=== PATIENT | female | born 1995 | race Caucasian/White ===

== ENCOUNTER 2017-01-28 06:20 | Day surgery (SDC) | payer OTHER ==
--- NOTE | 2017-01-19 03:40 | HP ---
PREOPERATIVE HISTORY AND PHYSICAL: DATE OF ADMISSION: 01/28/17 PROVIDER: Leobardo Guillory MD * (DICTATED BY ANN HOLDEN) CHIEF COMPLAINT: Left hip pain. HISTORY OF PRESENT ILLNESS: Gabriela is a 21-year-old female who has been followed by Dr. Guillory for ongoing pain in her left hip. She did undergo an injection intra- articularly which gave her immediate relief of her pain and it lasted almost 2 weeks. Prior to that, she had been having pain and catching in the hip. She has never had any injury, she denies any numbness, tingling, fevers or chills. She is interested in surgical intervention for correction of the problem at this point. PAST MEDICAL HISTORY: Anemia. PAST SURGICAL HISTORY: The patient had a cyst removal on her left shoulder. She reports no complications with the anesthesia. CURRENT MEDICATIONS: Iron 325 mg p.o. q. day. ALLERGIES: ZYRTEC. SOCIAL HISTORY: The patient is a student at [employer]. She denies tobacco use, she denies alcoholic beverages. She exercises regularly. She does live alone. REVIEW OF SYSTEMS: Constitutional: Negative for recent hospitalization, fevers , chills, night sweats or unexplained weight loss. HEENT: Negative for headaches, lightheadedness, or balance problems. Negative for changes to her hearing or vision. Negative for sore throat, runny nose or frequent nose bleeds. Cardiovascular: Negative for chest or arm pain with exertion, history of heart palpitations, heart murmur or high blood pressure. Negative for embolism or deep vein thrombosis. Respiratory: Negative for chronic cough, shortness of breath with exertion, asthma or COPD. Gastrointestinal: Negative for heartburn, nausea, vomiting, diarrhea, constipation or GERD. Genitourinary : Negative for night time urination, frequency of urination, urinary tract infections or kidney problems. Musculoskeletal: Negative for chronic back pain. No recent fractures. Positive for ongoing left hip pain. Skin: Negative for rashes, lesions, lumps or sores. Neurologic: Negative for seizure , stroke, epilepsy, depression, or anxiety. Endocrine: Negative for diabetes or thyroid problems. Hematology: Negative for easy bleeding, bruising or anemia. PHYSICAL EXAMINATION GENERAL: She is a well-developed, well-nourished, pleasant female in no acute distress at rest. She is alert and oriented x3 with appropriate mood and affect. Gait, she ambulates with a normal gait. There is good balance and coordination. VITAL SIGNS: The patient is 5 feet 4 inches, 125 pounds, blood pressure 113/65 , pulse 64, respirations 15, temperature 97.6. HEENT: Normocephalic, atraumatic. Hearing and vision are grossly intact. NECK: Trachea is midline. CARDIOVASCULAR: Regular rate and rhythm. No murmurs, rubs or gallops. Normal S1, S2. RESPIRATORY: Lungs clear to auscultation bilaterally. No wheezes, rales or rhonchi. ABDOMEN: Soft, nondistended, nontender. Normal bowel sounds. EXTREMITIES/MUSCULOSKELETAL: Examination of the hip demonstrates mild discomfort with deep flexion. He skin is intact without abrasions or open wounds. She has a mildly positive FADIR test. She has a negative TALA test. She has no pain on passive stretch. She is tender slightly about the lateral joint. She is sensate to light touch distally. She has a 2+ dorsalis pedis pulse. IMAGING: MRI was reviewed and demonstrates no fracture or dislocation. 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 IMPRESSION: Left hip labral tear and impingement. PLAN: The patient is to undergo left hip arthroscopic osteoplasty and labral repair by Dr. Guillory on 01/28/17. The risks, benefits and postoperative course were discussed with the patient at length and she would like to proceed. Several prescriptions were sent to her pharmacy for postoperative pain including Naproxen 500 mg, to take twice daily for 30 days, Percocet 5/325, oxycodone extended release 10 mg twice daily for 5 days, Ambien 5 mg every night for 5 days as well. All of the patient's questions were answered to her full satisfaction. We will follow up with the patient postoperatively. ANN HOLDEN [id number]/[facility] #: [id number] MTDSlade
[~2017-01-28 06:20] MED LIST: Buffered Lidocaine 0.9% SYRIN* 5 ML/SYR SYRINGE INTRADERM ONE; Dexamethasone IV* 4 MG/ML 1 ML (4 MG) IV SLOW PU ONE; Famotidine IV* 10 MG/ML 2 ML (20 mg) IV ONE; Scopolamine 1.5 mg* PATCH TRANSDERM ONE
[2017-01-28] MEDS ORDERED: Famotidine IV* 10 MG/ML 2 ML (20 mg) ONE (06:25)
[2017-01-28] MEDS ORDERED: Scopolamine 1.5 mg* PATCH ONE (06:25)
[2017-01-28] MEDS ORDERED: Buffered Lidocaine 0.9% SYRIN* 5 ML/SYR SYRINGE ONE (06:25)
[2017-01-28] MEDS ORDERED: Dexamethasone IV* 4 MG/ML 1 ML (4 MG) ONE ×2 (06:25→06:26)
[2017-01-28] MEDS ORDERED: ceFAZolin 2 GM PREMIX (*) 50 ML IVPB ONE (07:00)
[2017-01-28] MEDS ORDERED: ceFAZolin 2 GM PREMIX (*) 100 ML IVPB ONE (07:00)
[2017-01-28] MEDS ORDERED: Lidocaine 2% PF * 5 ML VIAL ONE (07:07)
[2017-01-28] MEDS ORDERED: Propofol* 10 MG/ML 20 ML BTL IV PUSH ONE (07:07)
[2017-01-28] MEDS ORDERED: Cisatracurium* 2 MG/ML MDV 5 ML ONE (07:07)
[2017-01-28] MEDS ORDERED: Midazolam* 1 MG/ML 5 ML VIAL (5 MG) ONE (07:15)
[2017-01-28] MEDS ORDERED: Bupivacaine 0.25% SDV* 30 ML ONE (07:15)
[2017-01-28] MEDS ORDERED: fentaNYL* 50 MCG/ML 2 ML VIAL (100 MCG VIAL) ONE ×2 (07:15→11:28)
[2017-01-28] MEDS ORDERED: EPHEDrine (Pressors)* 50 MG/ML VIAL ONE (08:13)
[2017-01-28] MEDS ORDERED: fentaNYL* 50 MCG/ML 2 ML VIAL (100 MCG VIAL) IV PRN (08:38)
[2017-01-28] MEDS ORDERED: PROCHLORPERAZINE INJ 5 MG/ML 2 ML VIAL IV PRN (08:38)
[2017-01-28] MEDS ORDERED: Morphine INJ* 2 MG/ML 1 ML SYRINGE IV PRN (08:38)
[2017-01-28] MEDS ORDERED: Ketorolac INJ* 30 MG/ML 1 ML VIAL ONE (08:48)
[2017-01-28] MEDS ORDERED: Ondansetron INJ* 2 MG/ML VIAL ONE (10:02)
--- NOTE | 2017-01-28 11:05 | RAD ---
CPT II Codes: 6045F INDICATION: Left hip arthroscopy. Fluoroscopic services provided for referring physician. 243.3 seconds of fluoroscopy time was used. 3 spot images demonstrates arthroscope in the left hip joint. IMPRESSION: Arthroscopic services provided for referring physician.
[2017-01-28] MEDS ORDERED: oxyCODONE/Acetamin 5/325 MG* TAB ONE (11:22)
[2017-01-28] MEDS: oxyCODONE/Acetamin 5/325 MG* TAB PO PRN ×2 (11:24→11:25)
[2017-01-28] MEDS ORDERED: PROCHLORPERAZINE INJ 5 MG/ML 2 ML VIAL ONE (11:28)
[2017-01-28 12:51] VITALS: BP 109/62
[2017-01-31] MEDS ORDERED: Scopolomine PATCH Remove* 1 NOTE MISC PATCH OFF ONE (06:00)
--- NOTE | 2017-02-21 13:26 | OP ---
CC: Dr. Leroy* DATE OF OPERATION: 01/28/17 - LOCATED WITHIN [facility] DATE OF : 89 SURGEON: Leobardo Guillory MD. INTEGRATION AIDE: ANN Solitario. ANESTHESIOLOGIST: Dr. Harrison. 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 OPERATIVE PROCEDURE: Left hip arthroplasty with labral debridement and acetabular osteoplasty as well as femoral osteoplasty. COMPLICATIONS: None. ESTIMATED BLOOD LOSS: Minimal. TRACTION TIME: About 1 hour 40 minutes. IMPLANTS USED: None. 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 She had MRI confirming femoroacetabular impingement. She responded well to an injection. After failing physical therapy, she has elected to proceed with surgery. Risks and benefits were discussed at length and included but are not limited to bleeding, infection, damage to nerves, vessels, surrounding structures, wound nonhealing, persistent pain, need for further surgery, scarring, stiffness, incomplete relief of symptoms, fracture, heterotopic ossification, risk of anesthesia as well as traction injury. She has elected to proceed. OPERATIVE FINDINGS: Traction provided good access to the hip joint without evidence of hyperlaxity. The arthroscopic exam showed a large labral tear from 10 to 2 o'clock position with subluxation into the labrum that was poor quality. There was also mild labral fraying more superiorly. The unstable labral tear was not able to be repaired and the labrum was degenerative somewhat. There was wave sign involving cartilage delamination at the division of labral tear with a minimal amount of damage to the acetabular cartilage. Otherwise cartilage of the femoral head was intact as well as the acetabulum and there was evidence of capsular irritation. DESCRIPTION OF PROCEDURE: The patient was greeted in the preoperative area by the attending surgeon. Correct extremity was marked and the consent was confirmed. The patient was then brought back to the operating suite where she was placed in supine position on the operating table. She then underwent general anesthesia with endotracheal intubation, after which thigh high HARLAN stockings were placed on her nonoperative leg. She was placed in the [employer] traction device hip distraction system with a well padded perineal post. She was placed in well-padded boots. Gross traction was then applied at the dome of the pelvis the lower extremity was then placed in a dynamic leg pichardo with neutral adduction, slight flexion, gentle internal rotation to bring the femoral neck parallel to the floor to facilitate atraumatic access. The left arm was then draped over the chest. Lead was placed around the patient to prevent exposure to radiation. The C-arm was then used to confirm alignment. A surgical pause was then done indicating side, site, procedure, then gross traction was applied to the operative extremity. Under sterile condition, an 18 -gauge spinal needle was used to introduce the joint to break the acetabular seal. Once this was done, fine traction was applied until the joint was distracted to about 1.5 cm. This was visualized and confirmed using a large C- arm fluoroscopy. Traction was then released. The hip was then prepped and draped in the usual sterile fashion beginning with chlorhexidine soap, scrub, and alcohol wipe and a final prep with ChloraPrep. After appropriate surgical pause indicating side, site, procedure, administration of antibiotics, traction was brought back up to allow for about 1.5 cm of distraction. The anterior peritrochanteric portal was then accessed using the long spinal needle, which was confirmed fluoroscopically. After this was done the nitinol wire was then used to help facilitate the cannula and the arthroscope into the joint atraumatically. Once this portal was made, the mid anterior portal was made in a similar fashion using spinal needle for localization. The trocar was advanced to the joint. A 70-degree scope was then used to identify and visualize the hip including femoral head, which had no significant arthritic changes. There was a waist at the acetabular ridge. The labrum was displaced and flapped into the joint and was fully detached in some portions. It appeared to be very degraded and in poor condition. The arthroscope was then switched in between portals to make sure no portal was penetrating the labrum. The irrigation pump was set to 40 mmHg and provided a constant pressure throughout the entirety of the case. Once the positions were confirmed, capsulotomy was then done at the hip capsule using the [place] blade. First, the compartment synovectomy was carried out using a full radius curved shaver as well as electrocautery device to maintain hemostasis. This eliminated the synovial fold that was visible to allow access to the joint capsule. The capsular reflection was then cleared back from the rim and acetabulum exposed to allow for rim trimming. At this point, it was determined that the labrum was not repairable, so biters and antonia were used to debride this back to try to protect and keep as much [place] labrum in place. At this point, rim trimming was began using a 5-mm round ju beginning superolaterally and then extending anteriorly. This was confirmed with a C-arm to help remove crossover sign as well as AIIS bony impingement all the way to the sub-spine region. This was determined by preoperative templating. All loose fluid and debris was removed. Attention was directed to the remainder of the labrum to make sure that there was no unstable flaps. Again repair was considered but was not able to be done due to the quality of the labrum. Once this was trimmed back to a stable layer, the traction was released of the operative leg. The traction was reduced and this was confirmed by C-arm as well as arthroscopically that the head was reduced into the joint and a concentric reduction was confirmed. Femoral head and neck were then partially visualized and it exposed a very mild cam lesion. Preoperative templating was then used as a guide and femoral neck osteoplasty was carried out using a 5.5 round ju. The resection was carried out from superior-lateral, inferior-medial, and was carefully monitored and confirmed using the C-arm to make sure elimination of any femoral-sided impingement. Femoral head and neck angle was then normalized. Care was taken to prevent iatrogenic injury to the lateral popliteal vessels postresection. Dynamic testing was done under direct visualization, a C-arm was used to ensure that all bony impingement was removed. The hip was taken through range of motion and resection was done in extension, flexion, internal, and external rotation as well as neutral rotation. The final dynamic exam was done to make that the cam lesion had been eliminated. At this point, meticulous hemostasis was obtained. A spinal needle was inserted into the joint under arthroscopic visualization and 3 mL of injectable saline and Toradol were injected into the hip joint. The skin incisions were then copiously irrigated and closed in a layered fashion with 2-0 Vicryl and 3- 0 nylon. The portals were then injected with 0.25% Marcaine for postoperative pain control. Sterile dressings were applied along with a Cryo/Cuff and thigh high HARLAN stockings on both extremities. She is awoken from anesthesia and transferred to PACU in stable condition. POSTOPERATIVE PLAN: She was discharged home same day. She was given prescription for MS Contin and Percocet. She was also given Naprosyn 500 mg p.o. b.i.d. that she should be on for 30 days. She was given Ambien 10 mg for 5 days. She will start physical therapy on postoperative day 1. She will not be allowed to flex her hip past 90 degrees for the first 2 weeks and 50% partial weightbearing, using crutches for the first 2 weeks postop. On postop day 1, she will be allowed to sit on a high seat stationary bicycle. I will see her back in 10 to 14 days with x- rays of the hip including Allen, lateral, and 45 degrees. [id number]/[facility] #: [id number] MTDD
== END 2017-01-28 13:11 | disposition home or self-care (01) ==
LOC: OR 06:20
PROVIDERS: ATTEND Orthopaedic Surgery
DX: M25.852 Other specified joint disorders, left hip (principal); M24.152 Other articular cartilage disorders, left hip; D64.9 Anemia, unspecified; Z88.8 Allergy status to other drugs, medicaments and biological substances
CPT/HCPCS: 76001; 81025; A9270-GY; J0690; J0780; J1100; J1885; J2250; J2405; J2704; J3010